=== PATIENT | female | born 1940 | race Caucasian/White ===

== ENCOUNTER 2018-08-03 11:59 | Emergency (ER) | payer OTHER ==
[~2018-08-03] VITALS: Ht 144.8 cm; Wt 54.4 kg
[~2018-08-03 11:59] MED LIST: ASPI-1153 PO; CLOP75TA2 PO; EZET10TA PO; FENO48TA4 PO; HYDR-3610 PO; HYG25 PO; ISO10 PO; LIP80 PO; METO-442 PO; MORP30TA PO; NIFE60TA83 PO; OMEG1CAP55 PO; POTA10TA15 PO; TIMO5DRO4 OP; VITD2000 PO; XALEYE OP
[2018-08-03] MEDS ORDERED: NACL 0.9% 1,000 ML IV ONE (12:08)
[2018-08-03 12:10] VITALS: BP_SYST 166
[2018-08-03 12:51] LABS: BASOPHILS % (AUTO) 0.4 % (0.0-2.0); EOSINOPHILS # (AUTO) 0.1 K/uL (0.0-0.4); EOSINOPHILS % (AUTO) 0.9 % (0.0-4.0); HEMATOCRIT 35.4 % (36-48); HEMOGLOBIN 11.5 g/dL (12.0-16.0); LYMPHOCYTES # (AUTO) 2.1 K/uL (1.0-5.5); LYMPHOCYTES % (AUTO) 17.1 % (20.5-51.5); MEAN CORPUSCULAR HEMOGLOBIN 33 pg (27-31); MEAN CORPUSCULAR HGB CONC 33 % (32-36); MEAN CORPUSCULAR VOLUME 100 fL (79.0-98.0); MONOCYTES # (AUTO) 0.8 K/uL (0.0-1.0); MONOCYTES % (AUTO) 6.6 % (1.7-9.3); NEUTROPHILS # (AUTO) 9.1 K/uL (1.8-7.7); PLATELET COUNT (AUTO) 222 K/uL (130-430); RED BLOOD CELL COUNT(AUTO) 3.54 MIL/uL (4.2-6.2); RED CELL DISTRIBUTION WIDTH 12.5 % (9.0-15.0); WHITE BLOOD COUNT (AUTO) 12.1 K/uL (4.8-10.8)
[2018-08-03 13:03] LABS: ANION GAP 12 (5-15); CALCIUM 9.3 mg/dL (8.4-11.0); CHLORIDE 96 mmol/L (98-107); CREATININE 1.52 mg/dL (0.55-1.30); GLUCOSE 141 mg/dL (70-99); POTASSIUM 3.5 mmol/L (3.5-5.1); SODIUM SERUM 136 mmol/L (136-145); UREA NITROGEN, BLOOD 24 mg/dL (8-21)
[2018-08-03 13:08] LABS: PROTHROMBIN TIME 10.4 SECS (9.5-12.5)
[2018-08-03 13:10] LABS: ALANINE AMINOTRANSFERASE 25 U/L (12-78); ALBUMIN 3.7 g/dL (3.4-4.8); AMYLASE 69 U/L (0-100); ASPARTATE AMINOTRANSFERASE 38 U/L (10-37); LIPASE 253 U/L (73-393); TOTAL BILIRUBIN 0.4 mg/dL (0.0-1.0)
[2018-08-03] MEDS ORDERED: KETOROLAC TROMETHAMINE 30 MG VIAL IVP ONE (13:45)
[2018-08-03 14:02] LABS: BILIRUBIN,URINE NEGATIVE (NEGATIVE); BLOOD, URINE 3+ (NEGATIVE); CLARITY/URINE CLEAR (CLEAR); COLOR,URINE YELLOW (YELLOW); GLUCOSE,URINE NEGATIVE (NEGATIVE); KETONES,URINE NEGATIVE (NEGATIVE); LEUKOCYTE ESTERASE ,URINE NEGATIVE (NEGATIVE); NITRITE, URINE NEGATIVE (NEGATIVE); PROTEIN URINE 2+ (NEGATIVE); UROBILINOGEN,URINE 0.2 (0.2-1.0)
[2018-08-03 14:20] LABS: BACTERIA,URINE RARE /HPF (None Seen); RBC,URINE 20-50 /HPF (0-3); WBC,URINE 0-3 /HPF (0-3)
[2018-08-03 15:20] VITALS: BP_SYST 166
== END 2018-08-03 15:20 | disposition home or self-care (01) ==
LOC: SED 11:59
DX: K59.09 Other constipation (principal); F11.20 Opioid dependence, uncomplicated; F03.90 Unspecified dementia, unspecified severity, without behavioral disturbance, psychotic disturbance, mood disturbance, and anxiety; R33.9 Retention of urine, unspecified; M19.90 Unspecified osteoarthritis, unspecified site; E78.5 Hyperlipidemia, unspecified; I10 Essential (primary) hypertension; Z88.2 Allergy status to sulfonamides; Z88.8 Allergy status to other drugs, medicaments and biological substances; Z79.82 Long term (current) use of aspirin; Z79.899 Other long term (current) drug therapy
CPT/HCPCS: 36415; 51702; 74018; 80053; 81000; 82150; 83690; 85025; 85610; 85730; 96374; 99284; J1885; J7030

== ENCOUNTER 2018-08-17 21:22 | Emergency (ER) | payer OTHER ==
[~2018-08-17] VITALS: Ht 149.9 cm; Wt 64.9 kg
[~2018-08-17 21:22] MED LIST changes: +TIMO5DRO15 OP; -TIMO5DRO4 OP
[2018-08-17 21:25] VITALS: BP_SYST 163
[2018-08-17] MEDS ORDERED: CAT.1 PO (22:41)
[2018-08-17] MEDS ORDERED: DOCU-144 PO (22:41)
[2018-08-17] MEDS ORDERED: NIFE90TA24 PO (22:41)
[2018-08-17] MEDS ORDERED: FAMO-132 PO (22:41)
[2018-08-17] MEDS ORDERED: ONDA4VIA52 IVP (22:41)
[2018-08-17] MEDS ORDERED: OMEG1CAP PO (22:41)
[2018-08-17] MEDS ORDERED: POLY17PO4 PO (22:41)
[2018-08-17] MEDS ORDERED: HYDR-4274 PO (22:41)
[2018-08-17] MEDS ORDERED: ACET-2165 PO (22:41)
[2018-08-17] MEDS ORDERED: ROCPM1 IV (22:41)
[2018-08-17] MEDS ORDERED: TRAV2.5D OP (22:41)
[2018-08-17] MEDS ORDERED: TEMA15CA5 PO (22:41)
[2018-08-17] MEDS ORDERED: ISOS10TA2 PO (22:41)
[2018-08-17] MEDS ORDERED: ROSU20TA PO (22:41)
[2018-08-17] MEDS ORDERED: CHOL500013 PO (22:41)
[2018-08-17] MEDS ORDERED: POTA10TA15 PO (22:41)
[2018-08-17] MEDS ORDERED: cefTRIAXone 1 GM in LIDOCAINE 1%, 20 ML MDV 2.1 ML IM ONE (23:30)
[2018-08-18 00:20] VITALS: BP_SYST 145
== END 2018-08-18 00:20 | disposition home or self-care (01) ==
LOC: SED 21:22
DX: J18.9 Pneumonia, unspecified organism (principal); I10 Essential (primary) hypertension; M19.90 Unspecified osteoarthritis, unspecified site; F03.90 Unspecified dementia, unspecified severity, without behavioral disturbance, psychotic disturbance, mood disturbance, and anxiety; E78.00 Pure hypercholesterolemia, unspecified; Z88.2 Allergy status to sulfonamides; Z88.8 Allergy status to other drugs, medicaments and biological substances; Z79.899 Other long term (current) drug therapy
CPT/HCPCS: 96372; 99283; J0696; J2001

== ENCOUNTER 2019-10-27 00:44 | Emergency (ER) | payer OTHER ==
[~2019-10-27] VITALS: Ht 142.2 cm; Wt 43.1 kg
[~2019-10-27 00:44] MED LIST changes: +ACET-2165 PO; -ASPI-1153 PO; +CAT.1 PO; +CHOL500013 PO; +DOCU-144 PO; -EZET10TA PO; +FAMO-132 PO; -FENO48TA4 PO; -HYDR-3610 PO; +HYDR-4274 PO; -HYG25 PO; -ISO10 PO; +ISOS10TA2 PO; -LIP80 PO; -NIFE60TA83 PO; +NIFE90TA24 PO; +OMEG1CAP PO; -OMEG1CAP55 PO; +ONDA4VIA52 IVP; +POLY17PO4 PO; +ROCPM1 IV; +ROSU20TA2 PO; +TEMA15CA5 PO; -TIMO5DRO15 OP; +TRAV2.5D OP; -VITD2000 PO; -XALEYE OP
[2019-10-27 00:45] VITALS: BP_SYST 187
--- NOTE | 2019-10-27 00:45 | NUR ---
Placed in room 6 . Placed on traffic monitor specialist, blood pressure machine and pulse oximeter. To gown for exam. Side rails up.
--- NOTE | 2019-10-27 00:47 | NUR ---
ER Dr. Collier at bedside examining patient.
--- NOTE | 2019-10-27 00:50 | NUR ---
Pt.s daughter, Melany calls and requests to be notified of any changes in pts condition. ([phone])
[2019-10-27] MEDS ORDERED: ESCI5TAB PO (01:15)
[2019-10-27] MEDS ORDERED: LUBI24CA5 PO (01:15)
[2019-10-27] MEDS ORDERED: NITSL SL (01:15)
[2019-10-27] MEDS ORDERED: hydrALAZINE HCL 20 MG/ML VIAL IVP ONE (01:15)
[2019-10-27] MEDS ORDERED: HYG25 PO (01:15)
[2019-10-27] MEDS ORDERED: OMEP20CA11 PO (01:15)
--- NOTE | 2019-10-27 01:35 | NUR ---
# 22 gauge angiocath placed to left forearm. Use of asceptic technique. Opsite placed over site. Blood return noted. Flushed with 10 cc of normal saline. No evidence of infiltration noted. Patient tolerated well.
--- NOTE | 2019-10-27 02:42 | NUR ---
Assisted patient to restroom. Pt ambulated with steady gait, no distress.
[2019-10-27 03:15] VITALS: BP_SYST 159
--- NOTE | 2019-10-27 03:15 | NUR ---
Patient given written and verbal discharge instructions and verbalizes understanding. ER MD discussed with patient the results and treatment provided. Patient in stable condition. ID arm band removed. IV catheter removed intact and dressing applied, no active bleeding. No Rx given. Patient educated on pain management and to follow up with PMD. Pain Scale 0. Opportunity for questions provided and answered. Medication side effect fact sheet provided.
== END 2019-10-27 03:15 | disposition home or self-care (01) ==
LOC: SED 00:44
DX: S43.52XA Sprain of left acromioclavicular joint, initial encounter (principal); S43.51XA Sprain of right acromioclavicular joint, initial encounter; I10 Essential (primary) hypertension; M19.90 Unspecified osteoarthritis, unspecified site; E78.5 Hyperlipidemia, unspecified; Z79.899 Other long term (current) drug therapy; Z88.2 Allergy status to sulfonamides; Z88.6 Allergy status to analgesic agent; W18.40XA Slipping, tripping and stumbling without falling, unspecified, initial encounter; Y93.89 Activity, other specified; Y92.091 Bathroom in other non-institutional residence as the place of occurrence of the external cause; Y99.8 Other external cause status
CPT/HCPCS: 73030; 96374; 99284; J0360